=== PATIENT | female | born 1960 | race Caucasian/White ===

== ENCOUNTER 2020-05-21 06:58 | Day surgery (SDC) | payer BC ==
[~2020-05-21 06:58] MED LIST: Lactated Ringers 1,000 ML IV SCH; Lidocaine 1%/Sod Bicarbonate in NS 8.4% 1 ML Syringe IDERM PRN; Sodium Chloride 0.9% 10 ML Syringe FLUSH PRN
[2020-05-21] MEDS ORDERED: Lidocaine 1% with EPINEPHrine 1:100,000 20 ML MDV ONE (07:22)
[2020-05-21] MEDS ORDERED: Sodium Chloride 0.9% 50 ML SDV ONE (07:22)
--- NOTE | 2020-05-21 07:41 | PCM.PREANE ---
Preanesthetic Assessment - Procedure Proposed Procedure: D&C , Hysteroscopy, polypectomy, - Anesthesia/Transfusion/Family Hx Anesthesia History: Prior Anesthesia Without Reaction Transfusion History: No Prior Transfusion(s) - Review of Systems General: No Symptoms Pulmonary: No Symptoms Cardiovascular: No Symptoms Gastrointestinal: No Symptoms Neurological: No Symptoms Other: Reports: Depression, Anxiety - Physical Assessment NPO Status Date: 05/20/20 NPO Status Time: 22:00 Vital Signs: Last Vital Signs Temp 97.1 F 05/21/20 07:10 Pulse 68 05/21/20 07:10 Resp 16 05/21/20 07:10 BP 137/85 05/21/20 07:10 Pulse Ox 96 05/21/20 07:10 Height: 1.73 m Weight: 122.016 kg ASA Class: 2 Mental Status: Alert & Oriented x3 Airway Class: Mallampati = 3 Dentition: Reports: Normal Dentition Thyro-Mental Finger Breadths: 3 Mouth Opening Finger Breadths: 3 ROM/Head Extension: Limited/Partial Lungs: Clear to Auscultation, Normal Respiratory Effort Cardiovascular: Regular Rate, Regular Rhythm - Lab Values: Laboratory Last Values COVID-19 PCR Not detected (NOT DETECT) 05/18/20 13:45 - Allergies Allergies/Adverse Reactions: Allergies Allergy/AdvReac Type Severity Reaction Status Date / Time No Known Allergies Allergy Verified 05/20/20 12:52 - Acknowledgements Anesthesia Type Planned: General Anesthesia Pt an Appropriate Candidate for the Planned Anesthesia: Yes Alternatives and Risks of Anesthesia Discussed w Pt/Guardian: Yes Pt/Guardian Understands and Agrees with Anesthesia Plan: Yes PreAnesthesia Questionnaire HEENT History: Reports: Impaired Vision, Otitis Media, Sinusitis, Other (See Below) Other HEENT History: uses reading glasses, hearing loss, sinus infection, eustachian tube dysfunction Cardiovascular History: Reports: Other (See Below) Other Cardiovascular History: inverted T wave, varicose vein Respiratory History: Reports: Sleep Apnea Gastrointestinal History: Reports: None Genitourinary History: Reports: Other (See Below) Other Genitourinary History: frequency, incontinence, herpes labialis AUDIO VISUAL TECH History: Reports: Other (See Below) Other OB/BYN History: postmenopausal bleeding, vaginal discharge Musculoskeletal History: Reports: Osteoarthritis, Other (See Below) Other Musculoskeletal History: right ankle sprain, right hip pain Neurological History: Reports: Vertigo, Other (See Below) Other Neuro History: dizziness Psychiatric History: Reports: Anxiety, Depression Endocrine/Metabolic History: Reports: Hypothyroidism, Obesity/BMI 30+, Vitamin D Deficiency, Other (See Below) Other Endocrine/Metabolic History: hashimotos Hematologic History: Reports: None Immunologic History: Reports: None Oncologic (Cancer) History: Reports: None Dermatologic History: Reports: Other (See Below) Other Dermatologic History: viral warts, skin neoplasm - Past Surgical History Head Surgeries/Procedures: Reports: None HEENT Surgical History: Reports: Tonsillectomy Cardiovascular Surgical History: Reports: None Respiratory Surgical History: Reports: None GI Surgical History: Reports: Cholecystectomy, Colonoscopy Female Surgical History: Reports: None Male Surgical History: Reports: None Endocrine Surgical History: Reports: None Neurological Surgical History: Reports: None Musculoskeletal Surgical History: Reports: None Oncologic Surgical History: Reports: None Dermatological Surgical History: Reports: None - SUBSTANCE USE Smoking Status *Q: Former Smoker Days Per Week of Alcohol Use: 7 Number of Drinks Per Day: 3 Total Drinks Per Week: 21 Recreational Drug Use History: No - HOME MEDS Home Medications: Home Meds LORazepam [Ativan] 1 mg PO BID PRN 05/20/20 [History] Levothyroxine Sodium [Synthroid] 25 mcg PO DAILY 05/20/20 [History] Levothyroxine Sodium [Synthroid] 200 mcg PO DAILY 05/20/20 [History] Melatonin 10 mg PO BEDTIME 05/20/20 [History] Naproxen 500 mg PO BID PRN 05/20/20 [History] Venlafaxine HCl [Venlafaxine ER] 150 mg PO DAILY 05/20/20 [History] Zolpidem Tartrate [Zolpidem Tartrate ER] 12.5 mg PO BEDTIME PRN 05/20/20 [History] buPROPion [Wellbutrin] 100 mg PO DAILY 05/20/20 [History] valACYclovir HCl [valACYclovir] 1 gm PO Q12H PRN 05/20/20 [History] - CURRENT (IN HOUSE) MEDS Current Meds: Current Medications Lactated Ringer's (Ringers, Lactated) 1,000 mls @ 125 mls/hr IV ASDIRECTED KARLO Stop: 05/21/20 23:00 Lidocaine/Sodium Bicarbonate (Buffered Lidocaine 1% In Ns 8.4%) 0.25 ml IDERM ONETIME PRN PRN Reason: Prior to IV Start Stop: 05/21/20 18:00 Sodium Chloride (Saline Flush) 10 ml FLUSH ASDIRECTED PRN PRN Reason: Keep Vein Open Stop: 05/21/20 18:00 Discontinued Medications Lidocaine/Epinephrine (Xylocaine 1% With Epinephrine 1:100,000) Confirm Administered Dose 20 ml .ROUTE .STK-MED ONE Stop: 05/21/20 07:23 Sodium Chloride (Normal Saline) Confirm Administered Dose 50 ml .ROUTE .STK-MED ONE Stop: 05/21/20 07:23
[2020-05-21] MEDS ORDERED: Ondansetron 4 MG/2 ML SDV ONE (07:43)
[2020-05-21] MEDS ORDERED: ceFAZolin 1 GM Vial ONE (07:44)
[2020-05-21] MEDS ORDERED: fentaNYL 250 MCG/5 ML SDV ONE (07:45)
[2020-05-21] MEDS ORDERED: Propofol 200 MG/20 ML SDV ONE (07:45)
[2020-05-21] MEDS ORDERED: Midazolam 1 MG/ML 2 ML SDV ONE (07:45)
[2020-05-21] MEDS ORDERED: Lidocaine 1% 4 ML ONE (07:48)
[2020-05-21] MEDS ORDERED: Succinylcholine/Sod PF 100 MG/5 ML SYRINGE IV ONE (07:51)
[2020-05-21] MEDS ORDERED: Lactated Ringers 1,000 ML ONE (09:02)
[2020-05-21] MEDS ORDERED: Ketorolac 30 MG/ML SDV ONE (09:18)
[2020-05-21] MEDS ORDERED: fentaNYL 100 MCG/2 ML SDV IVPUSH PRN (09:26)
[2020-05-21] MEDS ORDERED: HYDROmorphone 0.5 MG/0.5 ML Syringe IVPUSH PRN (09:26)
--- NOTE | 2020-05-21 10:13 | PCM.POSTAN ---
POST ANESTHESIA ASSESSMENT - MENTAL STATUS Mental Status: Somnolent - VITAL SIGNS Vital Signs: Last Vital Signs Temp 97.9 F 05/21/20 10:06 Pulse 68 05/21/20 07:10 Resp 15 05/21/20 10:06 BP 144/96 H 05/21/20 10:06 Pulse Ox 96 05/21/20 10:06 - RESPIRATORY Respiratory Status: Respiratory Rate WNL, Airway Patent, O2 Saturation Stable, Supplemental Oxygen - CARDIOVASCULAR CV Status: Pulse Rate WNL, Blood Pressure Stable - GASTROINTESTINAL GI Status: No Symptoms - PAIN Pain Score: 0 - POST OP HYDRATION Hydration Status: Adequate & Stable
--- NOTE | 2020-05-21 10:15 | PCM.OPNOTE ---
- General Post-Op/Procedure Note Date of Surgery/Procedure: 05/21/20 Operative Procedure(s): Hysteroscopy, dilation and curettage, and polypectomy Findings: Grossly normal-appearing endometrial cavity with normal-appearing uterine suarez after curettage. Multiple polyps noted on the posterior, left lateral and left anterior surfaces of the uterine cavity that were removed during the procedure. Bilateral fallopian tube ostia noted. Pre Op Diagnosis: Postmenopausal bleeding, suspected endometrial polyp Post-Op Diagnosis: Same with multiple endometrial polyps noted Anesthesia Technique: General LMA Primary Surgeon: Harshad Isaacs Anesthesia Provider: Abelino Gomez Stand Grinder: Keerthi Zaldivar ([employer] student) Pathology: Endometrial curettings and polyp fragments Fluid Replacement, Intraop: 1,700 Output, Urine Amount: 0 (Voided prior to procedure) EBL in mLs: 15 Complications: None Condition: Good Free Text/Narrative:: Hysteroscopy fluids in: 1500 mL Hysteroscopy fluids out: 1200 mL The patient was counseled on the risks, benefits and alternatives of the surgery and consents were reviewed. The patient was taken back to [facility] and placed under general anesthesia with laryngeal mask airway that was placed without difficulty. She was placed in the dorsal lithotomy position. She was prepped and draped in the normal sterile fashion. A weighted speculum was then placed and the cervix was visualized. A single-tooth tenaculum was placed on the anterior lip of the cervix. The hysteroscope was introduced into the cervix and advanced to the uterine fundus. There was noted to be multiple polyps on the posterior, left lateral and left anterior surfaces of the endometrial cavity. The remainder of the endometrial cavity was normal in appearance. The bilateral fluid being tube ostia were noted. The hysteroscope was then removed. The cervix was dilated to a 23 [place] Davis dilator. A polyp forceps was introduced into the cervix and advanced to the uterine fundus. The polyp forceps were used to remove the polyps from the uterine suarez. The polyp fragments were sent for pathology. A sharp curette was introduced into the uterine cavity, and curettage of the entire uterine cavity was performed. The curettings were sent to pathology. The hysteroscope was reinserted and advanced to the uterine fundus. The site of the polyp attachment was noted to have good hemostasis and appeared to have a small basal attachment remaining. There were no additional polyp fragments noted after the completion of the procedure. The single-tooth tenaculum was removed from the anterior lip of the cervix. Good hemostasis was noted. The procedure was complete at this time. All instruments were removed from the vagina. The patient tolerated the procedure well. All needle and sponge counts were correct x 2. The patient was taken to the recovery room in a stable condition. The patient will be discharged home when she has minimal bleeding, pain is well controlled with oral medications and she is voiding normally. She will follow up in the clinic in 1-2 weeks or earlier as needed. Review of images from the case [id number]: Error images with no image from the case taken IMG 005: Visualized portion of the suspected endometrial polyp in the posterior and left lateral portions of the uterine cavity IMG 006: Global view of the endometrial cavity after removal of the polyp and endometrial curettage IMG 007: Left tubal ostia following procedure IMG 008: Right tubal ostia following procedure
--- NOTE | 2020-05-21 12:18 | PCM48HPAN ---
Post Anesthesia Note - EVALUATION WITHIN 48HRS OF ANESTHETIC Vital Signs in Normal Range: Yes Patient Participated in Evaluation: Yes Respiratory Function Stable: Yes Airway Patent: Yes Cardiovascular Function Stable: Yes Hydration Status Stable: Yes Pain Control Satisfactory: Yes Nausea and Vomiting Control Satisfactory: Yes Mental Status Recovered: Yes Vital Signs: Last Vital Signs Temp 98.1 F 05/21/20 11:45 Pulse 80 05/21/20 11:45 Resp 16 05/21/20 11:45 BP 141/78 H 05/21/20 11:45 Pulse Ox 94 L 05/21/20 11:45 - COMMENTS/OBSERVATIONS Free Text/Narrative:: No anesthesia complications noted. Patient is being discharged home
== END 2020-05-21 12:05 | disposition home or self-care (01) ==
LOC: JD.SDS 06:58
PROVIDERS: ATTEND Obstetrics & Gynecology
DX: N84.0 Polyp of corpus uteri (principal); Q50.6 Other congenital malformations of fallopian tube and broad ligament; G47.30 Sleep apnea, unspecified; E03.9 Hypothyroidism, unspecified; E66.9 Obesity, unspecified; F41.9 Anxiety disorder, unspecified; G47.00 Insomnia, unspecified; F32.9 Major depressive disorder, single episode, unspecified; Z79.890 Hormone replacement therapy; Z79.899 Other long term (current) drug therapy; Z01.812 Encounter for preprocedural laboratory examination; Z20.828 Contact with and (suspected) exposure to other viral communicable diseases; Z87.891 Personal history of nicotine dependence; Z68.41 Body mass index [BMI] 40.0-44.9, adult
CPT/HCPCS: 58558; 81003; 87635; 88305; J0330; J0690; J1885; J2001; J2250; J2405; J2704; J3010; J7120; 00952; U0002

== ENCOUNTER 2023-01-16 08:12 | Day surgery (SDC) | payer BC ==
[~2023-01-16 08:12] MED LIST changes: +Sodium Chloride 0.9% 10 ML Syringe FLUSH SCH
[2023-01-16] MEDS ORDERED: Propofol 200 MG/20 ML SDV ONE (10:31)
[2023-01-16] MEDS ORDERED: Lidocaine 1% 4 ML ONE (10:31)
[2023-01-16] MEDS ORDERED: fentaNYL 100 MCG/2 ML SDV ONE (10:31)
[2023-01-16] MEDS ORDERED: Midazolam 1 MG/ML 2 ML SDV ONE (10:31)
== END 2023-01-16 12:52 | disposition home or self-care (01) ==
LOC: JD.SDS 08:12
PROVIDERS: ATTEND Surgery
DX: Z12.11 Encounter for screening for malignant neoplasm of colon (principal); D12.7 Benign neoplasm of rectosigmoid junction; D12.3 Benign neoplasm of transverse colon; K57.30 Diverticulosis of large intestine without perforation or abscess without bleeding; F41.9 Anxiety disorder, unspecified; F32.A Depression, unspecified; E03.9 Hypothyroidism, unspecified; G47.33 Obstructive sleep apnea (adult) (pediatric); E55.9 Vitamin D deficiency, unspecified; K21.9 Gastro-esophageal reflux disease without esophagitis; E66.9 Obesity, unspecified; E06.3 Autoimmune thyroiditis; Z80.0 Family history of malignant neoplasm of digestive organs; Z79.899 Other long term (current) drug therapy; Z68.41 Body mass index [BMI] 40.0-44.9, adult; Z87.891 Personal history of nicotine dependence; Z98.890 Other specified postprocedural states
CPT/HCPCS: 45385; J2250; J2704; J3010; J7120; 00811; J3490